=== PATIENT | female | born 1995 | race Caucasian/White ===

== ENCOUNTER 2019-04-02 15:44 | Emergency (ER) | payer SELFPAY ==
[~2019-04-02] VITALS: Ht 157.5 cm; Wt 44.9 kg
[2019-04-02 16:02] VITALS: BP 129/79
--- NOTE | 2019-04-02 16:12 | NUR ---
PT TRIAGED WITH DAUGHTER, SENT BACK TO LOBBY AWAITING FOR BED
--- NOTE | 2019-04-02 16:27 | NUR ---
PT AMBULATED TO CHAIR B.
--- NOTE | 2019-04-02 16:39 | NUR ---
24 Y/O F C/C FEVER, COUGH SINCE THURSDAY. PT HAS NOT TAKEN ANY MEDICINE AT HOME. PT NOT TAKEN FLU SHOT; FAMILY SICK AT HOME. PT NKA. NO HX. NO RX. NO N/V/D. SITTING IN CHAIR B.
[2019-04-02 17:01] VITALS: BP 129/79
--- NOTE | 2019-04-02 17:01 | NUR ---
Patient discharged with v/s stable. Written and verbal after care instructions given and explained. Patient alert, oriented and verbalized understanding of instructions. Ambulatory with steady gait. All questions addressed prior to discharge. ID band removed. Patient advised to follow up with PMD. Rx of ACETAMINOPHEN,PROMETHAZINE,IBUPROFEN given. Patient educated on indication of medication including possible reaction and side effects. Opportunity to ask questions provided and answered.
== END 2019-04-02 17:01 | disposition home or self-care (01) ==
LOC: MED 15:44
DX: J06.9 Acute upper respiratory infection, unspecified (principal)
CPT/HCPCS: 99283